=== PATIENT | female | born 1950 | race Caucasian/White ===

== ENCOUNTER 2021-09-19 00:55 | Day surgery (SDC) | payer MEDICARE, SELFPAY ==
[2021-09-18 08:24] VITALS: BMI 35.4
--- NOTE | 2021-09-18 08:25 | PC.NURSE ---
Report to the Outpatient Waiting Room, entrance under the green pavilion located off [facility], at time __0600 on date __09/19/21 . OR Time: . - You and your visitor will be asked a series of questions to screen for COVID 19 for your protection. - Only one visitor is allowed at this time. - The patient visitor is requested to leave or wait in car when not with patient. - A mask is required within the hospital. Patients may have clear liquids (water, carbonated beverages, clear teas, apple juice) until 3 hours prior to surgery with a maximum of 20 ounces. - No food from midnight until time of surgery - Infants may have breast milk until 4 hours before surgery, infant formula 6 hours prior to surgery. - Children will be allowed to drink immediately following surgery. If applicable, please bring a bottle or sippy cup to assist with drinking. Juice, water, soda, and popsicles are readily available. For infants on formula, please bring formula the day of surgery. Pacifiers are allowed. Take the following medications with a SIP of water the morning of surgery: ____DILTIAZEM,METOPROLOL Medications to discontinue per physician ____PT STATES LAST DOSE PLAVIX 09/13/[address] OVERTON AND DR MOSS AND START ASPIRIN 81 MG Date to take last dose Please no make-up, nail korean, hairspray, perfume, deodorant, or body powder the day of surgery. No jewelry (including any body piercings) or valuables the day of surgery, leave them at home. Please take a shower or bath the night before, or the morning of, surgery with an antibacterial soap. Wear comfortable, loose fitting clothing. Children are encouraged to wear pajamas. - Jewelry must be removed prior to entering the operating room. Rings and piercings that are not removed may be cut off. - The hospital will not accept responsibility for valuables. - Please leave all valuables, including medications, at home the day of surgery. If you are going home after surgery, a licensed oil transport driver must drive you home. - NO public transportation without another adult. - We recommend that an adult stay with you for 24 hours following discharge. - We also recommend that you do not drive, make important decision, drink alcoholic beverages, or take any drugs that were not prescribed by your health care provider for at least 24 hours after your discharge time. For Pediatric surgeries, we recommend two adults accompany the child home (only one inside the building at this time). Follow any additional instructions given to you from your surgeon. If you or anyone in your household have experienced Covid symptoms in the past week, please notify your surgeon or the nurse liaison at the phone number below for possible testing. VERBAL AND WRITTEN instructions given to __PATIENT AND DAUGHTER AUSTIN and asked if any additional questions and then verbalized understanding. Patient advised to call surgeon office or pre surgery nurse liaison [phone] if any additional questions.
--- NOTE | 2021-09-18 08:31 | PM.IMHP ---
H&P: HPI History of Present Illness Date/Time: 09/18/21 08:31 Chief Complaint: adnexal mass Narrative: 71 yo female who presents for robotic TLH/BSO for management of adnexal mass. Pt presented after CT scan showed a left adnexal cystic mass. Pelvic US was performed and confirmed these findings. Mass had previously been noted in 2016. CA-125 levels have been normal. Review of Systems Cardiovascular: Cardiovascular: Denies chest pain, Denies leg edema, Denies palpitations, Denies dyspnea and Denies dyspnea on exertion Respiratory: Respiratory: Denies cough, Denies dyspnea and Denies dyspnea on exertion Gastrointestinal: Gastrointestinal: Denies abdominal pain, Denies constipation, Denies diarrhea, Denies nausea and Denies vomiting Genitourinary: Genitourinary: Denies hematuria, Denies urinary frequency, Denies dysuria, Denies pelvic pain, Denies urinary incontinence and Denies vaginal discharge Neurologic: Reports system reviewed and no additional complaints, except as documented Psychiatric: Psychiatric: Reports no additional psychiatric complaints Endocrine: Endocrine: Denies palpitations Meds Home Medications and Allergies Home Medications Medication Instructions Recorded Confirmed Type aspirin 81 mg tablet 81 mg PO DAILY 09/18/21 09/18/21 History atorvastatin 80 mg tablet 80 mg PO DAILY 09/18/21 09/18/21 History clopidogrel 75 mg tablet 75 mg PO DAILY 09/18/21 09/18/21 History diltiazem HCl 120 mg 120 mg PO DAILY 09/18/21 09/18/21 History capsule,extended release 24 hr famotidine 20 mg tablet 20 mg PO PRN PRN Heartburn 09/18/21 09/18/21 History hydrocodone 5 mg-acetaminophen 325 1 tablet PO PRN PRN Pain 09/18/21 09/18/21 History mg tablet ibuprofen 600 mg tablet 600 mg PO QID PRN Pain 09/18/21 09/18/21 History irbesartan 150 1 tablet PO DAILY 09/18/21 09/18/21 History mg-hydrochlorothiazide 12.5 mg tablet metoprolol succinate 25 mg 25 mg PO DAILY 09/18/21 09/18/21 History tablet,extended release 24 hr nitroglycerin 0.4 mg sublingual 0.4 mg sublingual Q5-15M PRN Chest 09/18/21 09/18/21 History tablet Pain omeprazole 40 mg capsule,delayed 40 mg PO DAILY 09/18/21 09/18/21 History release Allergies Allergy/AdvReac Type Severity Reaction Status Date / Time Sulfa (Sulfonamide Allergy Hives Verified 09/18/21 07:54 Antibiotics) Exam Const: General: no acute distress Eyes: EOM: EOMs intact bilaterally Neck: Neck: supple Thyroid: thyroid normal Chest: Breast/axilla inspection: normal inspection of the breasts Breast/axilla palpation: normal palpation of the breasts, normal palpation of the axillae and no axillary lymphadenopathy Resp: Effort & Inspection: normal respiratory effort Auscultation: clear to auscultation bilaterally Cardio: Rate: regular rate Rhythm: regular rhythm GI: Inspection: non-distended GI Palp: Yes Soft to palpation, No Tenderness to palpation present (GI) and No Guarding due to palpation present (GI) Auscultation: normal bowel sounds : General: No bladder normal to palpation External Female Exam: normal external appearance Speculum Exam - Vagina: normal vaginal discharge and No vaginal bleeding Speculum Exam - Cervix: nontender Bimanual exam- vagina & uterus: No bladder normal to palpation and No Cervical tenderness present OB/external & speculum: No vaginal bleeding Skin: General skin exam: normal color and no rashes or lesions noted Neuro: Cognition (Neuro): normal cognition Speech: normal speech Extrem: General: normal to inspection and no edema Psych: Mental Status: mental status grossly normal Affect: normal affect Assessment and Plan Assessment and plan (1) Adnexal mass: Code(s): N94.89 - Other specified conditions associated with female genital organs and menstrual cycle Status: Acute Assessment and Plan: 71 yo female with left adnexal mass pt had CT scan that showed left adnexal cystic structure measur
[2021-09-18 08:37] VITALS: BP 155/69; PULSE 55; RESP 18; TEMP 37.1; O2SAT 97
--- NOTE | 2021-09-18 11:58 | WPDANESEPPF ---
Anes - Initial Pre Proc Eval Procedure: Operation Date: 09/19/21 07:30 Proposed Procedures p Robotic Total Laparoscopic Hysterectomy with Bilateral Salpingo-oophorectomy - Scot Gerber MD Date/Time: 09/18/21 11:58 Surgeon: Scot Greber MD Pre Op Diagnosis: Uterine Prolapse, Lt Ovarian Mass, Pelvc Pain Patient Data Age: 71 Gender: F Height: 1.69 m Weight: 101.2 kg Last Vital Signs Temp 98.7 F 09/18/21 08:37 Pulse 55 L 09/18/21 08:37 Resp 18 09/18/21 08:37 BP 155/69 H 09/18/21 08:37 Pulse Ox 97 09/18/21 08:37 O2 Del Method Room Air 09/18/21 08:37 Allergies Allergy/AdvReac Type Severity Reaction Status Date / Time Sulfa (Sulfonamide Allergy Intermediate Hives Verified 09/19/21 06:10 Antibiotics) Home Medications Medication Instructions Recorded Confirmed Type aspirin 81 mg tablet 81 mg PO DAILY 09/18/21 09/19/21 History atorvastatin 80 mg tablet 80 mg PO DAILY 09/18/21 09/19/21 History clopidogrel 75 mg tablet 75 mg PO DAILY 09/18/21 09/19/21 History diltiazem HCl 120 mg 120 mg PO DAILY 09/18/21 09/19/21 History capsule,extended release 24 hr famotidine 20 mg tablet 20 mg PO PRN PRN Heartburn 09/18/21 09/18/21 History hydrocodone 5 mg-acetaminophen 325 1 tablet PO PRN PRN Pain 09/18/21 09/18/21 History mg tablet ibuprofen 600 mg tablet 600 mg PO QID PRN Pain 09/18/21 09/18/21 History irbesartan 150 1 tablet PO DAILY 09/18/21 09/19/21 History mg-hydrochlorothiazide 12.5 mg tablet metoprolol succinate 25 mg 25 mg PO DAILY 09/18/21 09/19/21 History tablet,extended release 24 hr nitroglycerin 0.4 mg sublingual 0.4 mg sublingual Q5-15M PRN Chest 09/18/21 09/18/21 History tablet Pain omeprazole 40 mg capsule,delayed 40 mg PO DAILY 09/18/21 09/19/21 History release ibuprofen 600 mg tablet 600 mg PO Q6H PRN Cramping #30 tabs 09/19/21 Rx oxycodone-acetaminophen 5 mg-325 1 tablet PO Q6H PRN pain #30 tabs 09/19/21 Rx mg tablet Laboratory Tests 09/18/21 08:42 Blood Type O Positive Antibody Screen Negative Patient hx anesthesia problems: none Family hx anesthesia problems: none Results Review: All pre-operative results and documents have been reviewed as part of the pre-operative evaluation. [facility] Past Medical History Medical History (Updated 09/19/21 @ 12:38 by Scot Gerber MD) Arthritis CAD (coronary artery disease) GERD (gastroesophageal reflux disease) Hyperlipidemia Hypertension ROVRETO (obstructive sleep apnea) Surgical History Surgical History (Updated 09/18/21 @ 11:56 by Lucas Allen MD) Stented coronary artery times three Social History Social History Smoking status: Never smoker Living arrangements: alone Spiritual care concerns: No Anes - Eval Final PreProcedure Day of Procedure 09/18/21 11:58 Patient weight: obese Airway: Mallampati scale class II ASA classification: III Anesthesia type and monitoring: general ETT and standard monitoring Results Review: All pre-operative results and documents have been reviewed as part of the pre-operative evaluation. Informed Consent: The patient's anesthetic plan and its attendant risks and benefits were discussed with the patient/family/POA. Questions were solicited and answers provided to the satisfaction of the patient/family/POA.
[2021-09-19] VITALS (16 sets, daily range): BP systolic 111–188; BP diastolic 53–88; PULSE 46–68; RESP 7–20; TEMP 36.2–36.9; O2SAT 92–100
[2021-09-19] MEDS: ACETAMINOPHEN 500 MG TABLET 1000 MG PO (06:27)
[2021-09-19] MEDS: LACTATED RINGERS 1,000 ML 30 ML IV CONT ×2 (06:35→09:44)
[2021-09-19] MEDS: KETOROLAC 15 MG/ML VIAL (*BKC) IV PUSH (06:40)
--- NOTE | 2021-09-19 07:09 | WPDHPUPDATE1 ---
History and Physical Update Update Date/Time: 09/19/21 07:09 History and Physical has been reviewed, including an updated exam of the patient. There are NO changes in the patient's condition. Risks, benefits, and alternatives have been discussed and questions answered. Patient agrees to proceed with procedure.
[2021-09-19] MEDS: SCOPOLAMINE 1.5 MG PATCH TRANSDERM (07:23)
[2021-09-19] MEDS: ceFAZolin 2 GM/D5W 50 ML 2 GM/50 ML BAG IVPB (07:29)
[2021-09-19] MEDS: LIDO 2%/EPINEPHRINE 1:100,000 20 ML VIAL INFILTRATE (08:45)
--- NOTE | 2021-09-19 09:16 | W.PM.PROC2 ---
Procedure Note - Detailed Date of Procedure 09/19/21 Pre-op Diagnosis Lt Ovarian Mass, Pelvic Pain Post-op Diagnosis Same Procedure Performed robotic assisted total laparoscopic hysterectomy and bilateral salpingo-oophorectomy Surgeon Scot Gerber MD Anesthesia General Findings large cystic left ovarian mass, normal appearing uterus and right ovary Description of Procedure After the patient was appropriately consented she was taken to the operating room where she was transferred to the table in a dorsal supine position. General anesthesia was then induced with endotracheal intubation. The patient was transferred to a dorsal lithotomy position using adjustable yellow-fin stirrups. Her position was adjusted for appropriate support of her lower back and lower extremities. The patient was prepped and draped. A transurethral knight catheter was place. The cervix was sequentially dilated and a LUISANA uterine manipulator placed in typical fashion about a 3.5 cm MICHELLE ring. Gloves were changed. After confirmation of a functioning orogastric tube, lidocaine was injected at Li's point in the LUQ and a 5mm incision was made. A 5mm Optiview trocar was then inserted into the abdominal cavity under direct visualization and done so without complication. The abdomen was then insufflated with approximately 2-3L of CO2 establishing a pneumoperitoneum and the patient was placed in Trendelenburg position. Just above the umbilicus in the midline, a 8 mm incision made after injection of lidocaine and a 8 mm bladeless trocar advanced into the abdominal cavity under direct visualization without incident. We subsequently placed two robotic ports in a similar fashion, one in the left mid-quadrant and one in the right, 10cm lateral to the midline port. The robot was then docked. Pelvic survey was identified and large cystic ovarian mass was noted. Peritoneal washing were collected and sent for cytology. The Left round ligament was divided and the pararectal and paravesicle spaces developed, identifying the course of the ureter. The infundibulopelvic ligaments were skeletonized, triply coagulated and then transected with monopolar laurie away from the course of the ureter. The posterior aspect of the broad ligament was then skeletonized down to the level of the internal cervical os, mobilizing the ureter laterally. The bladder flap was then created sharply. The ipsilateral uterine artery was skeletonized, bipolar cauterized and transected. A similar procedure was performed on the contralateral side, developing the pelvic spaces, coagulating and dividing the IP away from the ureter, completing the bladder flap, and skeletonizing, ligating, and dividing the uterine artery on this side. The left ovary and mass were from the uterus along the utero-ovarian ligament and vessels. We ensured the vaginal pneumo-occluder balloon was insufflated and made a circumferential colpotomy using monopolar current. The uterus, cervix, bilateral tubes and right ovary were then delivered transvaginally. The left ovarian mass was then placed inside a endopouch bag that was introduced into the abdomen vaginally. The cyst was placed in the bag. The cyst was then drained in the bag. This fluid was sent for cytology. The ovary and mass were then removed in the bag through the vagina. I then re-approximated the colpotomy. A single 0-vicryl stitch was placed in the left vaginal cuff angle. The remainder of the colpotomy was closed with a running #1 PDO Quill suture in 2 layers. Following this dissection, the abdomen and pelvis were copiously irrigated and all surgical sites found to be hemostatic. Skin sites were reapproximated with 4-0 Vicryl in a subcuticular fashion. Steri-Strips were placed. The patient tolerated the procedure well. Sponge, needle and instrument counts were correct x 2 and the patient was taken to recovery in stable condition. Ancef was given for antimicrobial prophylaxis. The patient h
[2021-09-19] MEDS: fentaNYL CITRATE INJ (*CRX) 100 MCG/2 ML VIAL 25 MCG IV PUSH ×2 (10:00→10:05)
--- NOTE | 2021-09-19 10:03 | SUR.PHASEI ---
Simple mask removed at 1000.
--- NOTE | 2021-09-19 10:56 | ADMGEN ---
This patient, Halina Alex, was admitted to OB 2nd Floor Room 285-00. Patient/family oriented to hospital policies and general routines including ID bracelet, bed and alarms, visiting hours, pain management, procedures, bathroom and other care routines, personal items, smoking policy, room service/diet, and visiting hours. Information on how to activate the Rapid Response Team has been discussed. Patient/Family are encouraged to report perceived risks to care and to ask questions if they do not understand what they are told or what they should do.
[2021-09-19] MEDS: KETOROLAC 30 MG/ML VIAL (*BKC) IV PUSH (12:13)
--- NOTE | 2021-09-19 12:36 | PM.DS ---
DS: Admitting Diagnosis Discharge Date 09/20/21 Admitting Diagnosis adnexal mass DS: Summary Hospital Course Hospital Course: Halina Alex was admitted after robotic assisted total laparoscopic hysterectomy and bilateral salpingo-oophorectomy for adnexal mass. The above procedure was performed with no complications. She is doing well post op. She states her pain is well controlled with PO medications. She reports minimal bleeding. She is ambulating up to the chair. Her knight catheter was removed. She is tolerating PO without N/V. She reports passing flatus. Status at Discharge Overall status at discharge: patient is progressing back to baseline Time Spent with Patient Time attestation: Total time spent providing and/or coordinating discharge services: Time spent: Less than 30 minutes Exam Const: General: comfortable and no acute distress Limitations: no limitations Resp: Effort & Inspection: normal respiratory effort Auscultation: clear to auscultation bilaterally Cardio: Rate: regular rate Rhythm: regular rhythm GI: Inspection: non-distended GI Palp: Yes Soft to palpation, Yes Tenderness to palpation present (GI) (milder tenderness to deep palpation) and No Guarding due to palpation present (GI) Auscultation: normal bowel sounds Other: incisions C/D/I covered with dermabond Urinary Catheter: Urinary Catheter: urine clear Skin: General skin exam: normal color Extrem: General: normal to inspection Psych: Mental Status: mental status grossly normal Affect: normal affect DS: Data Data Completed and Pending Pending studies at discharge: Pending at discharge 09/19/21 09:07 Surgical [PTH] Routine Surgical [PTH] Routine Discharge Plan Discharge Patient Disposition: Home, Self-Care Discharge Instructions: Remove the Scopolamine patch that was placed behind your ear in 72 hours or less. Wash your hands after touching. Patient Instructions: Laparoscopic Hysterectomy (DC) Stand Alone Forms: General Discharge Instructions Follow-up/Referrals: Scot Gerber MD [Physician] - 2 Weeks Discharge Medications: New ibuprofen 600 mg Tablet 600 mg PO Q6H PRN (Reason: Cramping) Qty: 30 0RF oxycodone-acetaminophen 5-325 mg tablet 1 tablet PO Q6H PRN (Reason: pain) Qty: 30 0RF Continued atorvastatin 80 mg tablet 80 mg PO DAILY clopidogrel 75 mg tablet 75 mg PO DAILY aspirin 81 mg Tablet 81 mg PO DAILY diltiazem HCl 120 mg capsule,extended release 24hr 120 mg PO DAILY famotidine 20 mg Tablet 20 mg PO PRN PRN (Reason: Heartburn) irbesartan-hydrochlorothiazide 150-12.5 mg tablet 1 tablet PO DAILY metoprolol succinate 25 mg tablet extended release 24 hr 25 mg PO DAILY omeprazole 40 mg capsule,delayed release(DR/EC) 40 mg PO DAILY nitroglycerin 0.4 mg Tablet, Sublingual 0.4 mg SUBLINGUAL Q5-15M PRN (Reason: Chest Pain) Rx Instructions: do not exceed 3 doses per episode hydrocodone-acetaminophen 5-325 mg tablet 1 tablet PO PRN PRN (Reason: Pain) ibuprofen 600 mg Tablet 600 mg PO QID PRN (Reason: Pain)
[2021-09-19] MEDS: CLOPIDOGREL BISULFATE 75 MG TABLET PO (13:50)
[2021-09-19] MEDS: METOPROLOL SUCCINATE EXT REL 25 MG TABCR PO (13:50)
[2021-09-19] MEDS: ASPIRIN 81 MG CHEWABLE TABLET PO (13:50)
[2021-09-19] MEDS: ATORVASTATIN 40 MG TABLET 80 MG PO (13:50)
[2021-09-19 14:04] LABS: Hematocrit 42.6 % (37.0-47.0); Hemoglobin 13.8 g/dL (12.0-15.0); Mean Corpuscular HGB Conc 32.4 g/dl (32-36); Mean Corpuscular Hemoglobin 28.7 pg (26-34); Mean Corpuscular Volume 88.6 fl (80-100); Mean Platelet Volume 9.5 fl (7.4-10.4); Platelet Count Result 339 k/mm3 (150-375); Red Blood Count 4.81 M/mm3 (4.2-5.4); Red Cell Distribution Width 14.2 % (11.5-14.5); White Blood Count 19.3 K/mm3 (4.5-10.0)
[2021-09-19] MEDS: HYDROcodone/acetaminophen (*CRX) 10-325 MG TABLET 1 TAB PO ×2 (15:32→19:37)
[2021-09-19] MEDS: IBUPROFEN 600 MG TABLET PO (19:38)
[2021-09-20] VITALS: BP 130/71; PULSE 66; RESP 18; TEMP 36.9
[2021-09-20] MEDS: HYDROcodone/acetaminophen (*CRX) 10-325 MG TABLET 1 TAB PO (02:40)
[2021-09-20] MEDS: IBUPROFEN 600 MG TABLET PO ×2 (02:41→08:51)
[2021-09-20 04:00] VITALS: BP 125/70; PULSE 58; RESP 18; TEMP 36.4
[2021-09-20 05:19] LABS: Basophils Absolute Auto 0.1 K/mm3 (0.0-0.1); Basophils Percent Auto 0.3 % (0.2-1.2); Eosinophils Percent Auto 0.1 % (0-4.4); Hematocrit 38.2 % (37.0-47.0); Hemoglobin 12.7 g/dL (12.0-15.0); Immature Granulocyte Absolute 0.08 K/mm3 (0.00-0.031); Immature Granulocyte Percent A 0.5 % (0-0.5); Lymphocytes Absolute Auto 0.92 K/mm3 (0.9-3.2); Lymphocytes Percent Auto 5.5 % (18.3-44.2); Mean Corpuscular HGB Conc 33.2 g/dl (32-36); Mean Corpuscular Hemoglobin 28.7 pg (26-34); Mean Corpuscular Volume 86.4 fl (80-100); Mean Platelet Volume 9.7 fl (7.4-10.4); Monocytes Absolute Auto 0.9 K/mm3 (0.1-0.6); Monocytes Percent Auto 5.4 % (2.6-8.5); Neutrophils Absolute Auto 14.7 K/mm3 (1.3-6.7); Neutrophils Percent Auto 88.2 % (45.5-73.1); Platelet Count Result 386 k/mm3 (150-375); Red Blood Count 4.42 M/mm3 (4.2-5.4); Red Cell Distribution Width 14.1 % (11.5-14.5); White Blood Count 16.7 K/mm3 (4.5-10.0)
[2021-09-20 05:33] LABS: Anion Gap 9 mmol/L (8-16); Blood Urea Nitrogen 16 mg/dL (7-17); Carbon Dioxide 24 mmol/L (22-30); Chloride 97 mmol/L (98-107); Estimated CRCL calculation 48 ml/min; Estimated Glomerular Filt Rate 49; Glucose 126 mg/dL (65-110); Potassium 4.2 mmol/L (3.4-5.0); Sodium 130 mmol/L (137-145)
[2021-09-20] MEDS: HYDROcodone/acetaminophen (*CRX) 5-325 MG TABLET 1 TAB PO (08:51)
[2021-09-20] MEDS: ATORVASTATIN 40 MG TABLET 80 MG PO (08:55)
[2021-09-20 08:56] VITALS: PULSE 60
[2021-09-20] MEDS: CLOPIDOGREL BISULFATE 75 MG TABLET PO (08:56)
[2021-09-20] MEDS: METOPROLOL SUCCINATE EXT REL 25 MG TABCR PO (08:56)
[2021-09-20] MEDS: SIMETHICONE 80 MG TAB.CHEW (08:57)
[2021-09-20 09:15] VITALS: BP 150/72; PULSE 53; RESP 16; TEMP 36.6; O2SAT 98
--- NOTE | 2021-09-20 12:25 | PC.NURSE ---
Patient discharged to home with daughter. Abdominal binder applied prior to leaving per provider orders. Patient left unit via wheel chair by this RN. Follow up appointments confirmed.
== END 2021-09-20 12:25 | disposition home or self-care (01) ==
LOC: ANHSURGERY 07:25 → ANHOB2 11:09
PROVIDERS: PCP Family Medicine; Visit Provider Student in an Organized Health Care Education/Training Program
PROC: (CPT 58571; principal; 2021-09-19 07:30)
DX: N83.202 Unspecified ovarian cyst, left side (principal); N84.1 Polyp of cervix uteri; N80.0 Endometriosis of uterus; R10.2 Pelvic and perineal pain; I25.10 Atherosclerotic heart disease of native coronary artery without angina pectoris; I10 Essential (primary) hypertension; E78.5 Hyperlipidemia, unspecified; G47.33 Obstructive sleep apnea (adult) (pediatric); K21.9 Gastro-esophageal reflux disease without esophagitis; M19.90 Unspecified osteoarthritis, unspecified site; Z95.5 Presence of coronary angioplasty implant and graft; Z79.82 Long term (current) use of aspirin; Z79.02 Long term (current) use of antithrombotics/antiplatelets; Z79.891 Long term (current) use of opiate analgesic
CPT/HCPCS: 58571; 36415; 80048; 85025; 85027; 86850; 86900; 86901; 88108; 88305; 88307; 99199; A9270; J0690; J1100; J1170; J1885; J2250; J2405; J2590; J2704; J2710; J3010; J7030; J7120